=== PATIENT | female | born 1965 | race Caucasian/White ===

== ENCOUNTER → 2018-12-24 13:50 | Outpatient (CLI) | payer OTHER, SELFPAY | PROVIDERS: Visit Provider Obstetrics & Gynecology | DX: Z86.39 Personal history of other endocrine, nutritional and metabolic disease (principal) | CPT/HCPCS: 84443 ==

== ENCOUNTER 2021-04-29 17:56 | Outpatient (CLI) | payer OTHER, SELFPAY ==
--- NOTE | 2021-04-29 11:30 | LES_PTH ---
PATIENT: BRAXTON GONZALEZ LOC: [facility] U#:[id number] AGE/SX: 56/F ROOM: RE04/29/[address]: Dr. Lisandra Dooley MD : 1965 BED: DIS: 04/29/2021 SPEC #: [id number] RECD: 04/29/21 17:56 STATUS: EVELYNE REHarvey #: [id number] GUILHERME: 04/29/21 11:[address]: Lisandra Dooley DEPT: SURGICAL PATHOLOGY RECD BY: Jadyn Sanchez Tissues: Skin of face, NOS Procedures: Gen Path Consultation (on slides) Surgery Specimen Level IV HEADER OPERATION: 4 mm punch biopsy PRE-OP DIAGNOSIS: AK vs SCC TISSUE SUBMITTED: 4 mm punch left amish MICROSCOPIC DIAGNOSIS Lesion of left amish, punch biopsy: Actinic change with moderate to focal severe atypia. Hyperkeratosis, solar elastosis and mild chronic inflammation. AM:dex 05/03/2021 MICROSCOPIC DESCRIPTION Slides are reviewed. GROSS DESCRIPTION Received is one container labeled with the patient's name and not further designated. The specimen consists of a punch biopsy of fisher-brown skin measuring 0.3 cm in diameter and 0.5 cm in length. The specimen is totally submitted in one cassette. / SJ:dex 04/30/2021 TC:? CPT: 47650
--- NOTE | 2021-04-29 11:30 | LES_PTH ---
PATIENT: BRAXTON GONZALEZ LOC: [facility] U#:[id number] AGE/SX: 56/F ROOM: RE04/29/[address]: Dr. Lisandra Dooley MD : 1965 BED: DIS: 04/29/2021 SPEC #: [id number] RECD: 04/29/21 17:56 STATUS: EVELYNE REHarvey #: [id number] GUILHERME: 04/29/21 11:[address]: Lisandra Dooley DEPT: SURGICAL PATHOLOGY RECD BY: Jadyn Sanchez Tissues: Skin of face, NOS Procedures: Gen Path Consultation (on slides) Surgery Specimen Level IV HEADER OPERATION: 4 mm punch biopsy PRE-OP DIAGNOSIS: AK vs SCC TISSUE SUBMITTED: 4 mm punch left adventism MICROSCOPIC DIAGNOSIS Lesion of left adventism, punch biopsy: Squamous cell carcinoma, superficially invasive, arising in association with inflamed seborrheic keratosis and with features of actinic keratosis. See comment. AM:rg 05/03/2021 AM:dex 05/13/2021 COMMENT This case was seen in consultation with Dr. Miller of [facility]. Please see the complete consultative report in EMR. MICROSCOPIC DESCRIPTION Slides are reviewed. GROSS DESCRIPTION Received is one container labeled with the patient's name and not further designated. The specimen consists of a punch biopsy of fisher-brown skin measuring 0.3 cm in diameter and 0.5 cm in length. The specimen is totally submitted in one cassette. / SJ:dex 04/30/2021 TC:0 [facility]: [id number]
== END 2021-04-29 23:59 | disposition short-term general hospital (02) ==
LOC: LABSPEC 04-30 07:59
PROVIDERS: Visit Provider Family Medicine
DX: L85.9 Epidermal thickening, unspecified (principal); L57.8 Other skin changes due to chronic exposure to nonionizing radiation
CPT/HCPCS: 88305; 88325

== ENCOUNTER → 2022-09-13 | Outpatient (CLI) | payer OTHER, SELFPAY ==
[2022-09-13 17:51] LABS: Absolute Lymphocyte Count 2.52 X10^3/uL (0.83-4.51); Absolute Neutrophil Count 5.8 X10^3/uL (2.0-7.7); Basophil# 0.04 X10^3/uL; Basophil% 0.4 % (0-1); Eosinophil# 0.09 X10^3/uL; Hematocrit 43.7 % (37-47); Hemoglobin 13.5 g/dL (12.0-15.0); Lymphocyte # 2.52 X10^3/ul (0.83-4.51); Lymphocyte % 27.1 % (19-41); Mean Corp Hgb Conc 30.9 g/dL (32-36); Mean Corpuscular Hgb 28.6 pg (27.0-32.0); Mean Corpuscular Volume 92.6 fL (81-99); Monocyte# 0.86 X10^3/uL; Monocyte% 9.2 % (0-10); NRBC Flagged by Analyzer 0 % (0-5); Neutrophil # 5.76 X10^3/uL (2.7-7.7); Platelet Count 353 K/mm3 (150-450); RBC Distribution Width CV 12.8 % (11.6-14.6); RBC Distribution Width SD 43.8 fl (35.1-43.9); Red Blood Count 4.72 M/mm3 (4.2-5.4); White Blood Count 9.3 K/mm3 (4.4-11.0)
[2022-09-13 18:37] LABS: Hemoglobin A1c 5.7 % (3.8-5.6); Vitamin B12 328 pg/mL (211-911)
[2022-09-13 18:54] LABS: ALB/GLOB Ratio 0.9 RATIO (0.9-2.4); AST(SGOT) 22 U/L (15-37); Alanine Aminotransfer ALT/SGPT 27 U/L (13-56); Albumin, Serum 3.9 g/dL (3.2-5.0); Alkaline Phosphatase 65 U/L (45-117); Anion Gap 3 (5-15); BUN 18 mg/dL (7-18); BUN/Creat Ratio 26.8 RATIO (10-20); Calcium,Total 9.3 mg/dL (8.5-10.1); Chloride 109 mmol/L (98-107); Creatinine, Serum 0.67 mg/dL (0.55-1.02); EST Glomerular Filtration Rate 96 mL/min (>60); Est Glom Filt Rate - Afr Amer 116 mL/min (>60); Ferritin 32 ng/mL (8-252); Globulin 4.4 g/dL (2.2-4.2); Glucose 87 mg/dL (74-106); Iron 61 ug/dL (50-170); Iron Binding Capacity,Total 337 ug/dL (250-450); PERCENT IRON SATURATION 18.1 % (15.0-55.0); Potassium 4.8 mmol/L (3.5-5.1); Protein, Total 8.3 g/dL (6.4-8.2); Sodium Level 139 mmol/L (136-145)
== END | disposition home or self-care (01) ==
LOC: BFHLAB 15:57
PROVIDERS: PCP Family Medicine; Referring Provider Family Medicine; Visit Provider Family Medicine
DX: E03.9 Hypothyroidism, unspecified (principal); R53.83 Other fatigue
CPT/HCPCS: 36415; 80053; 82306; 82607; 82728; 83036; 83540; 83550; 84443; 85025

== ENCOUNTER → 2023-02-03 | Outpatient (CLI) | payer OTHER, SELFPAY ==
[2023-02-03 16:29] LABS: T4 Free Direct 1.05 ng/dL (0.76-1.46); Thyroid Stim Hormone (TSH) 3.17 uIU/mL (0.358-3.74)
== END | disposition home or self-care (01) ==
LOC: BFHLAB 11:16
PROVIDERS: PCP Family Medicine; Referring Provider Family Medicine; Visit Provider Family Medicine
DX: E03.9 Hypothyroidism, unspecified (principal)
CPT/HCPCS: 36415; 84439; 84443